=== PATIENT | female | born 2000 | race African-American/Black ===

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

== ENCOUNTER 2020-01-01 12:28 | Emergency (ER) | payer SELFPAY ==
[2020-01-01 12:29] VITALS: BP 159/104; PULSE 110; RESP 16; TEMP 36.3; O2SAT 97; BMI 46.3
--- NOTE | 2020-01-01 12:55 | RAD_ITS ---
STUDY: X-RAY - LEFT HAND, ATTENTION INDEX FINGER REASON FOR EXAM: Pain in second digit, injury. TECHNIQUE: 3 view(s) of the finger were obtained. COMPARISON: Radiographs 12/26/2019. FINDINGS: Normal metacarpal. Normal metacarpophalangeal joint. Normal proximal phalanx. Normal middle phalanx. Normal distal phalanx. Normal proximal interphalangeal joint. Normal distal interphalangeal joint. RAD/Finger(s) Min 2 Views IMPRESSION: Normal x-ray examination of the left second finger. Electronically Signed: Keny Esparza MD at 13:19 EDT Tel , Service support ,
--- NOTE | 2020-01-01 13:48 | ED.DCSUM_ITS ---
- ER Visit Summary Date of Service: 01/01/20 Chief Complaint: [Pain and swelling to left index finger] History of Present Illness: The patient is a 19 F [presents to the emergency department with continued pain in her left index finger. Patient sustained an injury to the left hand about a week ago. Patient states that she had a crush injury related to an air conditioner unit in her window that came down on her hand. Patient was seen in the emergency department at that time and had x-rays which were negative for fracture. Patient continues to have pain especially in the left index finger and the middle finger seems to have improved. 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 Physical Examination: [Left hand-patient does have some mild soft tissue swelling noted over the PIP joint of the left index finger with some subtle ecchymosis over the dorsal aspect. No obvious deformity. She is able to flex and extend the digit without difficulty. She is neurovascular intact distally.] Test Results: [Repeat x-rays of the left index finger obtained were read as normal.] Emergency Department Course and Treatment: [Given a aluminum splint.] Treatment Plan: [Patient will be referred to orthopedics for follow-up if her pain persists. She is instructed to use ibuprofen or Tylenol for discomfort. She is given work restrictions.] Disposition: [Discharged home in stable condition.] Impression: [Contusion/crush injury left index finger] This note was generated with [employer] dictation software. It may contain incorrect words, spelling, and punctuation that were not noted in review of the chart prior to signing ED Disposition - Plan for ED Patient: Referrals: Law Pradhan MD [Primary Care Provider] -
--- NOTE | 2020-01-01 13:51 | ED.DEP ---
ED Disposition - Plan for ED Patient: Instructions: ED CONTUSION Finger Referrals: Law Pradhan MD [Primary Care Provider] - Deep Chong DO [STAFF PHYSICIAN] - 5-7 Days
[2020-01-01 14:00] VITALS: BP 108/64; PULSE 59; RESP 16; O2SAT 99
== END 2020-01-01 14:02 | disposition home or self-care (01) ==
LOC: ED 12:48
PROVIDERS: Emergency Provider Emergency Medicine; PCP Pediatrics
DX: S67.191A Crushing injury of left index finger, initial encounter (principal); F17.200 Nicotine dependence, unspecified, uncomplicated; W23.0XXA Caught, crushed, jammed, or pinched between moving objects, initial encounter
CPT/HCPCS: 73140; 99283